=== PATIENT | female | born 1950 | race Caucasian/White ===

== ENCOUNTER 2024-08-02 20:21 | Emergency (ER) | payer MEDICARE, BC, SELFPAY ==
[2024-08-02 20:27] VITALS: PULSE 86; O2SAT 97
[2024-08-02 20:59] VITALS: BP 179/82; PULSE 77; RESP 19; TEMP 36.9; O2SAT 98; BMI 32.9
--- NOTE | 2024-08-02 21:15 | XR_ITS ---
Examination: Bilateral wrists 6 views Technique: AP oblique lateral each wrist total 6 views Exam date and time: August 02, 2024 2125 hrs. Indications: Patient fell today with injury to both wrists, bilateral wrist pain. Findings: Moderate osteopenia No acute fracture No dislocation Impression: No fracture or dislocation involving either wrist
--- NOTE | 2024-08-02 21:15 | XR_ITS ---
Examination: PA chest single view Technique: Upright PA chest single view Exam date and time: August 02, 2024 2123 hrs. Indications: Patient fell today with into the chest, chest pain Findings: Normal heart size No pneumothorax Clavicles ribs appear intact Reverse right shoulder arthroplasty Impression: No pneumothorax pulmonary contusion or hemothorax
--- NOTE | 2024-08-02 21:15 | XR_ITS ---
Examination: CT brain head without contrast. 2-D sagittal coronal reconstructions Date and time of exam:August 02, 2024 2154 hrs. Indications: Patient tripped and fell 2 hours ago with injury to the head, head pain CTDI: vol (mGy):47.90 DLP: (mGycm):1048 Technique: Multiple CT axial sections of the brain have been obtained, 5 mm slice thickness. Contrast has not been administered. 2-D sagittal, coronal reconstructions have been obtained Low dose protocols were performed. One or more of the following dose reduction techniques were used; automated exposure control, adjustment of the mA and/or KV according to patient size, use of iterative reconstruction technique. Findings: No significant ventricular enlargement. Intra-axial or extra-axial hemorrhage density is not seen. No mass effect or midline shift Basal cisterns are not remarkable. Fourth ventricle is midline. Cranial vault intact. Impression: Negative for acute hemorrhage, mass effect or midline shift
--- NOTE | 2024-08-02 21:15 | XR_ITS ---
Examination: CT thoracic spine, without contrast. 2-D sagittal reconstructions. 2-D coronal reconstructions. 3-D reconstructions. Date and time of exam:August 02, 2024 2159 hrs. Indications: Patient fell 2 hours ago with injury to the back, back pain CTDI: vol (mGy):33.85 DLP: (mGycm):1262 Technique: Multiple 1.25 mm axial sections of the thoracic spine without intravenous contrast have been obtained. 2-D sagittal and coronal reconstructions have been obtained. 3-D reconstructions have been obtained. Low dose protocols were performed. One or more of the following dose reduction techniques were used; automated exposure control, adjustment of the mA and/or KV according to patient size, use of iterative reconstruction technique. Findings: Adequate alignment thoracic vertebral bodies No thoracic fracture Diffuse thoracic disc narrowing Impression: No acute thoracic fracture
--- NOTE | 2024-08-02 21:15 | XR_ITS ---
Examination: CT cervical spine without contrast 2-D sagittal reconstructions 2-D coronal reconstructions 3-D reconstructions. Exam date and time:August 02, 2024 2156 hrs. Indications: Patient fell 2 hours ago with injury to the neck, neck pain CTDI:vol (mGy) 12.86 DLP: (mGycm) 342 Technique: Multiple 2 mm axial sections of the cervical spine have been obtained. The coronal and sagittal reconstructions have been obtained. 3-D reconstructions have been obtained. Low dose protocols were performed. One or more of the following dose reduction techniques were used; automated exposure control, adjustment of the mA and/or KV according to patient size, use of iterative reconstruction technique. Findings: Axial sections demonstrate intact base of the skull. Mild anterolisthesis C7 on T1 C1 exhibit satisfactory relationship to the odontoid. No acute cervical vertebral body fracture seen. Alignment posterior spinous processes satisfactory. Impression: No acute cervical fracture.
--- NOTE | 2024-08-02 21:16 | XR_ITS ---
Examination: CT maxillofacial, without intravenous contrast. 2-D sagittal reconstructions. 3-D reconstructions. Date and time of exam:August 02, 2024 2157 hrs. Indications: Patient fell 2 hours ago with injury to the face, facial pain CTDI: vol (mGy):16.40 DLP: (mGycm):359 Technique: Multiple axial images of maxillofacial region, 3.0 mm slice thickness. 2-D sagittal and coronal reconstructions. 3-D reconstructions. Low dose protocols were performed. One or more of the following dose reduction techniques were used; automated exposure control, adjustment of the mA and/or KV according to patient size, use of iterative reconstruction technique. Findings: Frontal bone intact No nasal bone fracture Orbital rims intact No depression zygomatic arches Pterygoid plates maxilla and the mandible intact Impression: No acute facial fracture.
--- NOTE | 2024-08-02 21:17 | PD.EDRME ---
Rapid Medical Screening Exam [facility] Arrival date/time: 08/02/24 20:21 73F with history of DM, hypothyroidim and psych presents to ED with head, face, neck, upper back and wrist/forearm pain after trip and fall. Patient denies ab, hip, chest and lower extremity pain. Chief Complaint: Fall Vital signs: Vital Signs Temperature 98.5 F 08/02/24 20:59 Pulse Rate 77 08/02/24 20:59 Respiratory Rate 19 08/02/24 20:59 Blood Pressure 179/82 H 08/02/24 20:59 Pulse Oximetry (%) 98 08/02/24 20:59 Oxygen Delivery Method Room Air 08/02/24 20:59
--- NOTE | 2024-08-02 22:21 | XR_ITS ---
Shoulder bilateral, 4 views Technique: Shoulder AP internal rotation, Y view right and left shoulders total 4 views Exam date and time :10/02/2023 1043 hrs. Indications: Patient fell today with injury to both shoulders, bilateral shoulder pain Findings: Reverse right shoulder arthroplasty with satisfactory alignment Advanced left shoulder glenohumeral joint osteoarthritis No acute left shoulder fracture or dislocation Impression: No shoulder fractures or dislocations
[2024-08-02] MEDS: HYDROcodone/APAP 5/325 TABLET 1 TAB PO (22:54)
[2024-08-03 01:09] VITALS: BP 183/79; PULSE 71; RESP 20; O2SAT 99
--- NOTE | 2024-08-03 01:46 | EDNOTE_ITS ---
ED Fall Injury RME/HPI General Chief Complaint: Fall Stated Complaint: FALL Arrival date/time: 08/02/24 20:21 RME / HPI RME / HPI Narrative: 08/02/24 20:21 73F with history of DM, hypothyroidim and psych presents to ED with head, face, neck, upper back and wrist/forearm pain after trip and fall. Patient denies ab, hip, chest and lower extremity pain. ----- Dr. Shook?s Main ED Evaluation: 73yo female with pmhx DM, HTN accompanied by her daughter presents to the ED for a chief complaint of a fall. Patient states she was walking in a room at home when her shoe got caught on the carpet and fell forward into a closed door. Patient endorses having right shoulder and wrist pain, left thumb pain, and back pain. She denies any head strikes or loss of consciousness. She denies any chest pain, abdominal pain, shortness of breath, BLE pain or any other associated symptoms. No known allergies. Patient states the pain medication she was given here in the ED earlier helped, but is now starting to return. Related Data Home Medications ?Medication ?Instructions ?Recorded ?Confirmed ezetimibe 10 mg-simvastatin 20 mg 1 tab PO QDAY 07/02/22 07/03/22 tablet levothyroxine 100 mcg tablet 100 mcg PO QAM 07/02/22 07/03/22 metformin 500 mg tablet,extended 500 mg PO QDAY Diabetes 07/02/22 07/03/22 release 24 hr sertraline 100 mg tablet 100 mg PO QDAY 07/02/22 07/03/22 triamterene 37.5 1 cap PO QDAY Swelling in ankles 07/02/22 07/03/22 mg-hydrochlorothiazide 25 mg capsule valsartan 40 mg tablet (Diovan) 80 mg PO QDAY High Blood Pressure 07/02/22 07/03/22 Previous Rx's ?Medication ?Instructions ?Recorded amoxicillin 500 mg-potassium 1 tab PO BID #14 tabs 07/04/22 clavulanate 125 mg tablet (Augmentin) acetaminophen 500 mg capsule 1,000 mg (2 x 500 mg) PO Q6H PRN 08/03/24 pain #20 caps ibuprofen 600 mg tablet 600 mg PO Q6H PRN pain #20 tabs 08/03/24 Allergies Allergy/AdvReac Type Severity Reaction Status Date / Time No Known Allergies Allergy Verified 10/13/18 18:27 Review of Systems Review of Systems Systems Reviewed: All systems reviewed, normal except as documented Past Medical History Past Medical History NEUROLOGIC: Negative Seizures CARDIAC: Positive Cardiac Disorders, Hypercholesterolemia and Hypertension; Negative Congestive Heart Failure RESPIRATORY: Negative Chronic Obstructive Pulmonary Disease (COPD) GENITOURINARY: Negative Renal Disease REPRODUCTIVE: Positive Breast Cancer (remission) ENDOCRINE: Positive Diabetes Mellitus Type 2 and Hypothyroidism; Negative Diabetes Mellitus Type 1 PSYCHO/SOCIAL: Positive Depression OTHER HISTORY: Positive Chicken Pox, Measles, Mumps and Breast Cancer (remission); Negative Blood Transfusions, Blood Transfusion Reaction or Anesthesia Reactions Surgical History SURGICAL: Positive Abdominal Surgery and Mastectomy (left) Social History SMOKING STATUS: Never smoker ED Exam Narrative Physical exam: GENERAL APPEARANCE: alert and oriented x 4, well-developed, well-nourished, no acute distress VITALS: All vitals were reviewed and the pulse ox is 99% on room air, which is normal according to my interpretation. HEENT: Normocephalic, atraumatic; pupils equal, round, reactive to light; EOMI; mucous membranes pink, moist; oropharynx clear NECK: Supple LUNGS: CTABL; no wheezes, no rales, no rhonchi HEART: Regular rate, regular rhythm; normal S1, S2; no murmurs ABDOMEN: non distended; normal BS; soft, no tenderness, no guarding, no rebound; no masses, no organomegaly, no hernia BACK: no CVA tenderness EXTREMITIES: atraumatic; no edema NEUROLOGIC: awake; alert and oriented x4; cranial nerves II-XII grossly intact; no focal sensory or motor deficits PSYCHIATRIC: appropriate mood and affect SKIN: warm, dry, normal color; no rashes Course Course Course Narrative: CXR is ordered to r/o pneumothorax. Quality Measures none Orders Category Date Time Status Rigid cervical collar PRN Care 08/02/24 21:17 Completed Discharge Routine Discharge 08/03/24 02:[address] cervical spine wo con Stat Exams 08/02/24 21:[address] facial bones wo con Stat Exams 08/02/24 21:[address] head/brain wo con Stat Exams 08/02/24 21:[address] thoracic spine wo con Stat Exams 08/02/24 21:15 Completed XR chest 1V portable Stat Exams 08/02/24 21:15 Completed XR shoulder BI 2V Stat Exams 08/02/24 22:21 Completed XR wrist comp BI min 3V Stat Exams 08/02/24 21:15 Completed HYDROcodone*/APAP 5/325 [[place] 5/325] Med 08/02/24 22:21 Discontinued 1 tab PO X1 ONE HYDROcodone/APAP 10/325 [[place] 10/325] Med 08/03/24 02:42 Discontinued 1 tab PO X1 ONE Ketorolac Inj [Toradol Inj] Med 08/03/24 02:42 Discontinued 15 mg IM X1 ONE Vital Signs Vital signs: Vital Signs Temperature 98.5 F 08/02/24 20:59 Pulse Rate 77 08/02/24 20:59 Respiratory Rate 19 08/02/24 20:59 Blood Pressure 179/82 H 08/02/24 20:59 Pulse Oximetry (%) 98 08/02/24 20:59 Oxygen Delivery Method Room Air 08/02/24 20:59 Fall Patient data External records reviewed:: [facility] previous records (Per chart review, patient has no relevant previous ED visits or admissions to this facility.) Clinical information provided by:: patient Social determinants that could affect healthcare access:: none Patient has the following chronic illnesses:: HTN, HLD, DM How is presenting disease/condition affected by chronic disease/condition?: uneffected by Evaluation data The following diagnostics were reviewed and interpreted by me:: radiology exam(s) Lab and/or radiology exams considered but not ordered:: none Interpretation Summary: [facility] Signed Patient: TREMAINE CEDILLO [facility]. Record#: [id number] Birthdate: 1950 Age/Sex: 73 / F Location: [facility] Attending Dr: Ordering Physician: Luiz Donahue PA-C Date of Service: 08/02/24 Procedure(s): CT cervical spine wo con Accession Number(s): [id number] cc: Heriberto Rivera; Abner Moran MD; Luiz Donahue PA-C~ Examination: CT cervical spine without contrast 2-D sagittal reconstructions 2-D coronal reconstructions 3-D reconstructions. Exam date and time:August 02, 2024 2156 hrs. Indications: Patient fell 2 hours ago with injury to the neck, neck pain CTDI:vol (mGy) 12.86 DLP: (mGycm) 342 Technique: Multiple 2 mm axial sections of the cervical spine have been obtained. The coronal and sagittal reconstructions have been obtained. 3-D reconstructions have been obtained. Low dose protocols were performed. One or more of the following dose reduction techniques were used; automated exposure control, adjustment of the mA and/or KV according to patient size, use of iterative reconstruction technique. Findings: Axial sections demonstrate intact base of the skull. Mild anterolisthesis C7 on T1 C1 exhibit satisfactory relationship to the odontoid. No acute cervical vertebral body fracture seen. Alignment posterior spinous processes satisfactory. Impression: No acute cervical fracture. Dictated By: Abner Moran MD Signed By: <Electronically signed by Anber Moran MD in [place]> 08/02/242213 ----- [facility] Signed Patient: TREMAINE CEDILLO. Record#: [id number] Birthdate: 1950 Age/Sex: 73 / F Location: [facility] Attending Dr: Ordering Physician: Luiz Donahue PA-C Date of Service: 08/02/24 Procedure(s): XR chest 1V portable Accession Number(s): [id number] cc: Heriberto Rivera; Abner Moran MD; Luiz Donahue PA-C~ Examination: PA chest single view Technique: Upright PA chest single view Exam date and time: August 02, 2024 2123 hrs. Indications: Patient fell today with into the chest, chest pain Findings: Normal heart size No pneumothorax Clavicles ribs appear intact Reverse right shoulder arthroplasty Impression: No pneumothorax pulmonary contusion or hemothorax Dictated By: Abner Moran MD Signed By: <Electronically signed by Abner Moran MD in OV> 08/02/242206 ----- [facility] Signed Patient: TREMAINE CEDILLO. Record#: [id number] Birthdate: 1950 Age/Sex: 73 / F Location: [facility] Attending Dr: Ordering Physician: Luiz Donahue PA-C Date of Service: 08/02/24 Procedure(s): CT head/brain wo con Accession Number(s): [id number] cc: Heriberto Rivera; Abner Moran MD; Luiz Donahue PA-C~ Examination: CT brain head without contrast. 2-D sagittal coronal reconstructions Date and time of exam:August 02, 20244 hrs. Indications: Patient tripped and fell 2 hours ago with injury to the head, head pain CTDI: vol (mGy):47.90 DLP: (mGycm):1048 Technique: Multiple CT axial sections of the brain have been obtained, 5 mm slice thickness. Contrast has not been administered. 2-D sagittal, coronal reconstructions have been obtained Low dose protocols were performed. One or more of the following dose reduction techniques were used; automated exposure control, adjustment of the mA and/or KV according to patient size, use of iterative reconstruction technique. Findings: No significant ventricular enlargement. Intra-axial or extra-axial hemorrhage density is not seen. No mass effect or midline shift Basal cisterns are not remarkable. Fourth ventricle is midline. Cranial vault intact. Impression: Negative for acute hemorrhage, mass effect or midline shift Dictated By: Abner Moran MD Signed By: <Electronically signed by Abner Moran MD in OV> 08/02/242211 --- [facility] Signed Patient: TREMAINE CEDILLO. Record#: [id number] Birthdate: 1950 Age/Sex: 73 / F Location: [facility] Attending Dr: Ordering Physician: Luiz Donahue PA-C Date of Service: 08/02/24 Procedure(s): CT thoracic spine wo [facility] Accession Number(s): [id number] cc: Heriberto Rivera; Abner Moran MD; Luiz Donahue PA-C~ Examination: CT thoracic spine, without contrast. 2-D sagittal reconstructions. 2-D coronal reconstructions. 3-D reconstructions. Date and time of exam:August 02, 20249 hrs. Indications: Patient fell 2 hours ago with injury to the back, back pain CTDI: vol (mGy):33.85 DLP: (mGycm):1262 Technique: Multiple 1.25 mm axial sections of the thoracic spine without intravenous contrast have been obtained. 2-D sagittal and coronal reconstructions have been obtained. 3-D reconstructions have been obtained. Low dose protocols were performed. One or more of the following dose reduction techniques were used; automated exposure control, adjustment of the mA and/or KV according to patient size, use of iterative reconstruction technique. Findings: Adequate alignment thoracic vertebral bodies No thoracic fracture Diffuse thoracic disc narrowing Impression: No acute thoracic fracture Dictated By: Abner Moran MD Signed By: <Electronically signed by Abner Moran MD in OV> 08/02/242217 ------ [facility] Signed Patient: TREMAINE CEDILLO. Record#: [id number] Birthdate: 1950 Age/Sex: 73 / F Location: [facility] Attending Dr: Ordering Physician: Luiz Donahue PA-C Date of Service: 08/02/24 Procedure(s): XR wrist comp BI min 3V Accession Number(s): [id number] cc: Heriberto Rivera; Abner Moran MD; Luiz Donahue PA-C~ Examination: Bilateral wrists 6 views Technique: AP oblique lateral each wrist total 6 views Exam date and time: August 02, 2024 2125 hrs. Indications: Patient fell today with injury to both wrists, bilateral wrist pain. Findings: Moderate osteopenia No acute fracture No dislocation Impression: No fracture or dislocation involving either wrist Dictated By: Abner Moran MD Signed By: <Electronically signed by Abner Moran MD in OV> 08/02/242207 ------- [facility] Signed Patient: TREMAINE CEDILLO. Record#: [id number] Birthdate: 1950 Age/Sex: 73 / F Location: [facility] Attending Dr: Ordering Physician: Luiz Donahue PA-C Date of Service: 08/02/24 Procedure(s): CT facial bones wo con Accession Number(s): [id number] cc: Heriberto Rivera; Abner Moran MD; Luiz Donahue PA-C~ Examination: CT maxillofacial, without intravenous contrast. 2-D sagittal reconstructions. 3-D reconstructions. Date and time of exam:August 02, 2024 2157 hrs. Indications: Patient fell 2 hours ago with injury to the face, facial pain CTDI: vol (mGy):16.40 DLP: (mGycm):359 Technique: Multiple axial images of maxillofacial region, 3.0 mm slice thickness. 2-D sagittal and coronal reconstructions. 3-D reconstructions. Low dose protocols were performed. One or more of the following dose reduction techniques were used; automated exposure control, adjustment of the mA and/or KV according to patient size, use of iterative reconstruction technique. Findings: Frontal bone intact No nasal bone fracture Orbital rims intact No depression zygomatic arches Pterygoid plates maxilla and the mandible intact Impression: No acute facial fracture. Dictated By: Abner Moran MD Signed By: <Electronically signed by Abner Moran MD in OV> 08/02/246 ------- [facility] Signed Patient: TREMAINE CEDILLO Record#: [id number] Birthdate: 1950 Age/Sex: 73 / F Location: [facility] Attending Dr: Ordering Physician: Luiz Donahue PA-C Date of Service: 08/02/24 Procedure(s): XR shoulder BI 2V Accession Number(s): [id number] cc: Heriberto Rivera; Abner Moran MD; Luiz Donahue PA-C~ Shoulder bilateral, 4 views Technique: Shoulder AP internal rotation, Y view right and left shoulders total 4 views Exam date and time :10/02/2023 1043 hrs. Indications: Patient fell today with injury to both shoulders, bilateral shoulder pain Findings: Reverse right shoulder arthroplasty with satisfactory alignment Advanced left shoulder glenohumeral joint osteoarthritis No acute left shoulder fracture or dislocation Impression: No shoulder fractures or dislocations Dictated By: Abner Moran MD Signed By: <Electronically signed by Abner Moran MD in OV> 08/02/24 3531 Medications / Prescriptions Medications or Prescriptions considered but not ordered:: none Medication administrations:: Medication Administration History Discontinued Medications Hydrocodone Bitart/Acetaminophen (Hydrocodone/Apap 5/325 Tablet) 1 tab PO X1 ONE Stop: 08/02/24 22:22 Last Admin: 08/02/24 22:54 Dose: 1 tab Documented By: Hydrocodone Bitart/Acetaminophen (Hydrocodone/Apap 10/325 Tab) 1 tab PO X1 ONE Stop: 08/03/24 02:43 Last Admin: 08/03/24 03:00 Dose: 1 tab Documented By: MABEL Ketorolac Tromethamine (Ketorolac Inj 60 Mg/2 Ml Vial) 15 mg IM X1 ONE Stop: 08/03/24 02:43 Last Admin: 08/03/24 03:00 Dose: 15 mg Documented By: MABEL see above Consultations Consultation(s) initiated? (list below): No Diagnosis Fall Differential Diagnosis: other (fracture, dislocation, contusion, ICH, concussion) Most likely diagnosis given after review of the tests above:: see below Admission Indicated Admission indicated?: not indicated Admission Request Was there a request for admission?: No Disposition Plan Disposition Plan: Discharge Discharge Attestation Discharge Attestation: The patient and all family members were given an opportunity to ask questions and understood the discharge instructions. Discharge instructions specifically effects, indications for sooner follow up or return to the emergency department, and the expected course of current diagnosis. Patient condition: Stable Discharge Plan Plan Patient Disposition: HOME (Self Care) Disposition Comment: Stable for discharge Patient condition on transfer: Stable Prescriptions/Referrals Prescriptions/Med Rec: New ibuprofen 600 mg tablet 600 mg PO Q6H PRN (Reason: pain) Qty: 20 0RF acetaminophen 500 mg capsule 1,000 mg PO Q6H PRN (Reason: pain) Qty: 20 0RF No Action sertraline 100 mg tablet 100 mg PO QDAY Patient Comments: TAKE 1 TABLET BY MOUTH EVERY DAY triamterene-hydrochlorothiazid 37.5-25 mg capsule 1 cap PO QDAY Patient Comments: TAKE 1 CAPSULE BY MOUTH EVERY DAY FOR 90 DAYS levothyroxine 100 mcg tablet 100 mcg PO QAM Patient Comments: TAKE 1 TABLET BY MOUTH EVERY DAY IN THE MORNING ON EMPTY STOMACH FOR 90 DAYS metformin 500 mg tablet extended release 24 hr 500 mg PO QDAY Patient Comments: 1 TABLET WITH EVENING MEAL ORALLY ONCE A DAY 90 DAYS valsartan [Diovan] 40 mg tablet 80 mg PO QDAY Patient Comments: TAKE 2 TABLETS BY MOUTH EVERY DAY ezetimibe-simvastatin 10-20 mg tablet 1 tab PO QDAY Patient Comments: TAKE 1 TABLET BY MOUTH EVERY DAY amoxicillin-pot clavulanate [Augmentin] 500-125 mg tablet 1 tab PO BID Qty: 14 0RF Referrals: Heriberto Rivera [Primary Care Provider] - In 1 week Problem List Clinical Impression: Fall, Generalized muscle ache Patient/Caregiver Discharge Instructions Discharge Activity: activity as tolerated Education Materials: Fall Prevention Assessing Risk, ED Myalgias Additional Instructions: Please return to the emergency department for any worsening or any further medical problems You should follow-up with your primary care doctor within the next several days Be sure not to drive a vehicle and be careful this evening. You were given [place] which contains hydrocodone. It is best to go to bed when you get home. Print Language: Danish Stand Alone Forms: [facility] Award Info., Patient Portal Info Letter
[2024-08-03] MEDS: HYDROcodone/APAP 10/325 TAB PO (03:00)
[2024-08-03] MEDS: KETOROLAC INJ 60 MG/2 ML VIAL 15 MG IM (03:00)
[2024-08-03 03:02] VITALS: BP 174/78; PULSE 79; RESP 18; O2SAT 97
== END 2024-08-03 03:22 | disposition home or self-care (01) ==
PROVIDERS: Emergency Provider Emergency Medicine; PCP Internal Medicine
DX: S69.92XA Unspecified injury of left wrist, hand and finger(s), initial encounter (principal); S69.91XA Unspecified injury of right wrist, hand and finger(s), initial encounter; S09.90XA Unspecified injury of head, initial encounter; S19.9XXA Unspecified injury of neck, initial encounter; S09.93XA Unspecified injury of face, initial encounter; S29.9XXA Unspecified injury of thorax, initial encounter; S49.92XA Unspecified injury of left shoulder and upper arm, initial encounter; S49.91XA Unspecified injury of right shoulder and upper arm, initial encounter; W18.09XA Striking against other object with subsequent fall, initial encounter; Y93.01 Activity, walking, marching and hiking
CPT/HCPCS: 70450; 70486; 71045; 72125; 72128; 73030; 73110; 96372; 99284; J1885; A9270

== ENCOUNTER → 2024-09-07 | Outpatient (CLI) | payer MEDICARE, BC, SELFPAY ==
[2024-09-07 13:01] LABS: Basophils % (Auto) 1 % (0-2.5); Eosinophils # (Auto) 0.2 Thou/mm3 (0.0-0.5); Eosinophils % (Auto) 3 % (0-10); Hematocrit 41.7 % (36.0-46.0); Hemoglobin 13.8 g/dL (12.0-16.0); Immature Granulocytes % (Auto) 0 % (0-0); Immature Granulocytes Auto 0.02 Thou/mm3 (0.00-0.00); Lymphocytes # (Auto) 2.1 Thou/mm3 (1.0-4.8); Lymphocytes % (Auto) 29 % (10-50); Mean Corpuscular HGB Conc 33.1 g/dl (31.0-37.0); Mean Corpuscular Hemoglobin 28.9 pg (25.0-35.0); Mean Corpuscular Volume 87 fL (80-100); Monocytes # (Auto) 0.8 Thou/mm3 (0.0-0.8); Monocytes % (Auto) 11 % (0-12); Neutrophils # (Auto) 4.1 Thou/mm3 (1.8-7.7); Neutrophils % (Auto) 57 % (37-80); Nucleated Red Blood Cell % 0 /100 WBC (0); Platelet Count 196 Thou/mm3 (140-440); Red Blood Count 4.78 Miln/mm3 (4.00-5.20); White Blood Count 7.2 Thou/mm3 (3.6-11.0)
[2024-09-07 13:14] LABS: Glucose Estimated Average 103 mg/dL (80-131); Hemoglobin A1C 5.2 % Hgb (4.8-6.0)
[2024-09-07 13:18] LABS: Vitamin B12 824 pg/mL (211-911); Vitamin D 25 Hydroxy Total 42.5 ng/mL (7.3-40.2)
[2024-09-07 13:19] LABS: Alanine Aminotransferase 20 U/L (10-49); Albumin, Serum 4.6 gm/dL (3.4-4.8); Alkaline Phosphatase 66 U/L (46-116); Anion Gap 7 (7-16); Aspartate Amino Transferase 18 U/L (0-34); BUN/Creatinine Ratio 26 Ratio (12-20); Bilirubin,Total 0.4 mg/dL (0.3-1.2); Blood Urea Nitrogen 18 mg/dL (9-23); Calcium 9.5 mg/dL (8.3-10.6); Calcium (Corrected) 9.5 mg/dL (8.5-10.1); Carbon Dioxide 28.3 mMol/L (20.0-31.0); Chloride 106 mMol/L (98-107); Cholesterol 188 mg/dL (132-200); Creatinine (Component) 0.7 mg/dL (0.6-1.3); Globulin 2.3 gm/dL (2.3-3.5); Glucose 91 mg/dL (74-106); HDL Cholesterol 63 mg/dL (40-60); LDL Cholesterol,Calculated 98 mg/dL (0-130); Osmolality,Calculated 283 (275-295); Potassium 4.4 mMol/L (3.4-5.1); Sodium 141 mMol/L (136-145); Thyroid Stimulating Hormone 2.51 uIU/mL (0.55-4.78); Total Protein 6.9 gm/dL (5.7-8.2); Triglycerides 135 mg/dL (30-150); eGFR > 60 See Note
== END | disposition home or self-care (01) ==
LOC: COPL 12:08
PROVIDERS: PCP Internal Medicine; Referring Provider Internal Medicine; Visit Provider Internal Medicine
DX: E03.9 Hypothyroidism, unspecified (principal); I10 Essential (primary) hypertension; E78.5 Hyperlipidemia, unspecified; E11.65 Type 2 diabetes mellitus with hyperglycemia; E55.9 Vitamin D deficiency, unspecified
CPT/HCPCS: 36415; 80053; 80061; 82306; 82607; 83036; 84443; 85025

== ENCOUNTER → 2024-09-15 | Outpatient (CLI) | payer MEDICARE, BC, SELFPAY ==
--- NOTE | 2024-09-15 09:00 | XR_ITS ---
Examination: Bone densitometry Date and time of exam:September 15, 2024 0941 hours INDICATIONS: Menopause age 48 diabetic calcium and vitamin D 8 years levothyroxine 8 years Technique: Lumbar spine and hip total bone mineralization values of an calculated. Peak reference and age match control results have been displayed. Findings: Lumbar spine total bone mineralization is1.122 gm/cm2. This is 1.3 standard deviations above peak reference. This is 3.6 standard deviations above age-matched controls. Hip total bone mineralization is 0.855 gm/cm2 This is 0.7 standard deviations below peak reference. This is 1.1 standard deviations above age-matched controls Impression: There is normal mineralization based on lumbar spine measurements. There is normal mineralization based on hip measurements Lumbar mineralization is increase 20.4% compared with December 10, 2013 Hip mineralization is decreased 8.7% compared with December 10, 2013
== END | disposition home or self-care (01) ==
LOC: CDIM 09:06
PROVIDERS: PCP Family Medicine; Referring Provider Internal Medicine; Visit Provider Internal Medicine
DX: M81.0 Age-related osteoporosis without current pathological fracture (principal)
CPT/HCPCS: 77080